=== PATIENT | female | born 1995 | race Two or more races ===

== ENCOUNTER 2024-04-07 21:30 | Observation (INO) | payer MEDICAID, SELFPAY ==
[2024-04-07 21:43] VITALS: TEMP 36.8
[2024-04-07 21:44] VITALS: BP 110/64; PULSE 75; RESP 16; RESP 99; TEMP 36.8; O2SAT 99
[2024-04-07 22:04] VITALS: BMI 31.1
[2024-04-07 22:08] VITALS: TEMP 36.8
[2024-04-07 22:10] LABS: Collection Type, Urine Clean Catch
[2024-04-07 22:12] LABS: ROM Swab Mixed By: ANGUM; Swb Mxed in Solvent 1 min? Yes
[2024-04-07 22:13] LABS: ROM Kit Lot # 57809118
[2024-04-07 22:14] LABS: Rupture of Fetal Membranes Negative (Negative)
[2024-04-07 22:42] LABS: Bacteria,Urine Rare; Bilirubin,Urine Negative (Negative); Blood,Urine Negative (Negative); Clarity,Urine Turbid (Clear/Hazy); Color,Urine Yellow (Lt Yel-Yel); Glucose, Urine Negative (Negative); Ketones,Urine Negative (Negative); Leukocyte Esterase,Urine Negative (Negative); Nitrite,Urine Negative (Negative); Protein,Urine Negative (Neg - Trace); RBC,Urine 5 /hpf (0-3); Specific Gravity,Urine 1.021 (1.001-1.035); Squamous Epithelial Cell,Urine 2 /hpf (0-5); WBC,Urine 7 /hpf (0-5)
== END 2024-04-07 23:15 | disposition home or self-care (01) ==
PROVIDERS: Admitting Provider Specialist; PCP Family Medicine; Visit Provider Specialist
DX: Z34.83 Encounter for supervision of other normal pregnancy, third trimester (principal); Z3A.28 28 weeks gestation of pregnancy
CPT/HCPCS: 59025; 59899; 81001; 84112

== ENCOUNTER 2024-06-29 12:40 | Observation (INO) | payer MEDICAID, SELFPAY ==
[2024-06-29 12:51] VITALS: BP 0/0
[2024-06-29 12:52] VITALS: BP 120/80; PULSE 75
[2024-06-29 12:55] VITALS: BP 135/79; PULSE 81; RESP 16; RESP 97; TEMP 37; O2SAT 97; BMI 33.0
[2024-06-29 13:02] VITALS: BP 116/74; PULSE 69
[2024-06-29 13:12] VITALS: BP 114/73; PULSE 72
[2024-06-29 13:22] VITALS: BP 112/65; PULSE 65
--- NOTE | 2024-06-29 13:49 | PC.NURSE ---
1325- EFM x 2 off. TORB to mo home per dr. mireles. d/c instructions given along with kick counts and labor precautions. instructed to keep all scheduled appts. pt stable to private vehicle
== END 2024-06-29 13:35 | disposition home or self-care (01) ==
PROVIDERS: Admitting Provider Obstetrics & Gynecology; Visit Provider Obstetrics & Gynecology
DX: Z34.03 Encounter for supervision of normal first pregnancy, third trimester (principal); Z3A.39 39 weeks gestation of pregnancy
CPT/HCPCS: 59025; 59899

== ENCOUNTER 2024-07-02 03:37 | Inpatient (IN) | payer MEDICAID, SELFPAY ==
[2024-07-02] VITALS (78 sets, daily range): BP systolic 111–137; BP diastolic 52–96; PULSE 56–113; RESP 16–97; TEMP 36.4–36.8; O2SAT 92–100; BMI 33.8
[2024-07-02] MEDS: RINGERS LACTATED 1000 ML 1,000 ML 125 ML IV ×3 (04:24→07:39)
[2024-07-02] MEDS: fentaNYL CIT INJ 50 mCg/ML AMP 2ML 100 MCG IV (04:34)
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
[2024-07-02 05:13] LABS: Basophils # (Auto) 0.1 Thou/mm3 (0.0-0.2); Basophils % (Auto) 0 % (0-2.5); Eosinophils % (Auto) 0 % (0-10); Hematocrit 36.1 % (36.0-46.0); Hemoglobin 12.5 g/dL (12.0-16.0); Immature Granulocytes % (Auto) 1 % (0-0); Immature Granulocytes Auto 0.12 Thou/mm3 (0.00-0.00); Lymphocytes % (Auto) 16 % (10-50); Mean Corpuscular HGB Conc 34.6 g/dl (31.0-37.0); Mean Corpuscular Volume 90 fL (80-100); Monocytes # (Auto) 0.9 Thou/mm3 (0.0-0.8); Monocytes % (Auto) 7 % (0-12); Neutrophils # (Auto) 9.2 Thou/mm3 (1.8-7.7); Neutrophils % (Auto) 75 % (37-80); Nucleated Red Blood Cell % 0 /100 WBC (0); Platelet Count 200 Thou/mm3 (140-440); RDW Standard Deviation 43.1 fL (36.4-46.3); Red Blood Count 4.03 Miln/mm3 (4.00-5.20); White Blood Count 12.4 Thou/mm3 (3.6-11.0)
[2024-07-02 05:43] LABS: Syphilis Nonreactive (Nonreactive)
[2024-07-02] MEDS: OXYTOCIN in NS 20 units 20 UNIT/1,000 ML BAG 125 UNIT IV (08:15)
--- NOTE | 2024-07-02 08:31 | OBDSUM_ITS ---
Data ([place]) Data Hx Section: No Maternal Blood Type: A Pos Rubella Titre: Positive RPR: Non-reactive Labs: Negative: RPR, Hepatitis B, HIV, Chlamydia, Gonorrhea and Group Beta Strep : 2 Term: 1 : 0 Livin Abortions: Spontaneous & Theraputic: 0 Delivery Data ([facility]) Labor Data Initiation of labor: Spontaneous Induction/Augmentation Agent: None ROM date: 07/02/24 ROM time: 08:07 Amniotic membrane rupture type: Spontaneous Amniotic fluid description: Clear Delivery Data EDC: 07/01/24 EDC calculated by:: LMP/early US confirmation Date of arrival to unit: 07/01/24 Time of arrival to unit: 03:40 Onset of labor date: 07/01/24 Onset of labor time: 23:00 Complete dilation date: 07/02/24 Complete dilation time: 08:07 [place] delivery date: 07/02/24 delivery time: 08:09 Gestational age (weeks): 40 Gestational age (days): 1 Placenta delivery date: 07/02/24 Placenta delivery time: 08:15 Stage 1 total time: Labor - Stage 1 Duration 9 hours and 7 minutes Length stage 2 (minutes): 3 Length stage 3 (minutes): 5 Delivered by: Miryam [facility] ([facility]) Delivery nurse: clover cuevas [facility] nurse: clayton cuevas Purchase Analyst at delivery: No Support person(s) at delivery: fob Other staff at delivery: isabel cuevas charge, chris cuevas Delivery Method Delivery: Vaginal Presentation: Vertex Position: OA Anesthesia Type Primary Anesthesia: Epidural Secondary Anesthesia: None Delivery Room Medications Other Intrapartum Medications: No Post Delivery Medications N/A: No Placenta Placenta Delivery: Spontaneous Placenta Cultures Obtained: No Placenta Sent for Examination: No Cord Sample: Cord Blood Obtained Episiotomy Episiotomy: None EBL Estimated blood loss (ml): 50 Umbilical Cord Umbilical Vessels: 3 Nuchal Cord: x1 Loosely Body Cord: None Additional Procedures The patient is a 28-year-old -0-0-1 at 40 1/7 weeks with all care uncomplicated with Dr Shook and on the chart. She presented to triage about 340 in the morning after rupturing her bag around 2200 the night before, on 07/02/23. The patient was admitted in early labor. She had an epidural placed approximately 6:30 in the morning and was 5 cm. She went on to rapidly progress to complete by 8:07 in the morning and ruptured her bag at that time. The patient then pushed through 1-2 contractions delivering at 8:09 in the morning. Findings: liveborn female in the YOHAN presentation with a loose nuchal cord x 1 ,no meconium. Apgars were 8 and 9 weight is pending at the time of dictation but approximately 6 pounds. The placenta was complete, spontaneous, and grossly normal. The patient delivered over an intact perineum. Complications were none. Condition both mom and infant were in stable condition in the delivery room. Complications Complications: none [place] Data ([facility]) Data order: 1 's gender: Female Identification band number: [id number] weight (gms): 2891.651 g 1 minute: 8 5 minutes: 9
[2024-07-02 16:40] LABS: Basophils % (Auto) 0 % (0-2.5); Eosinophils % (Auto) 0 % (0-10); Hematocrit 31.2 % (36.0-46.0); Immature Granulocytes % (Auto) 1 % (0-0); Lymphocytes # (Auto) 1.8 Thou/mm3 (1.0-4.8); Lymphocytes % (Auto) 12 % (10-50); Mean Corpuscular HGB Conc 35.3 g/dl (31.0-37.0); Mean Corpuscular Hemoglobin 30.6 pg (25.0-35.0); Mean Corpuscular Volume 87 fL (80-100); Monocytes # (Auto) 1.1 Thou/mm3 (0.0-0.8); Monocytes % (Auto) 7 % (0-12); Neutrophils % (Auto) 80 % (37-80); Nucleated Red Blood Cell % 0 /100 WBC (0); Platelet Count 173 Thou/mm3 (140-440); RDW Standard Deviation 41.1 fL (36.4-46.3)
[2024-07-02] MEDS: IBUPROFEN TAB 400 MG TABLET 800 MG PO (23:17)
[2024-07-03 03:55] VITALS: BP 115/81; PULSE 58; RESP 16; TEMP 36.4; O2SAT 96
[2024-07-03 08:00] VITALS: BP 113/75; PULSE 88; RESP 16; TEMP 36.6; O2SAT 96
--- NOTE | 2024-07-03 09:13 | ESPR_ITS ---
Subjective Subjective Interval history: Patient is a 28-year-old -0-0-1 admitted 07/02/2024. All care uncomplicated with Dr Shook. She went on to deliver around 8:00 in the morning on 07/02/2024 by myself. She had an epidural. She delivered over an intact perineum. Patient had an uncomplicated course and wants to go home day #2. Today she is resting comfortably in bed dressed in her own pajamas. She request stool softeners to go home. Ibuprofen is taking care of her cramping pain. Her bleeding is minimal. Exam Vital Signs Temp Pulse Resp BP Pulse Ox O2 Del Method 97.6 F 58 L 16 115/81 96 Room Air 07/03/24 03:55 07/03/24 03:55 07/03/24 03:55 07/03/24 03:55 07/03/24 03:55 07/03/24 03:55 Narrative Exam Patient is alert and orient x 3 in no apparent distress. Fundus is firm around her umbilicus extremities show no significant edema or erythema Objective Labs 07/02/24 15:58 Labs: Laboratory Results - last 24 hr 07/02/24 15:58 WBC 15.0 H RBC 3.60 L Hgb 11.0 L Hct 31.2 L MCV 87 MCH 30.6 MCHC 35.3 RDW Std Deviation 41.1 Plt Count 173 Neut % (Auto) 80 Lymph % (Auto) 12 [place] % (Auto) 7 Eos % (Auto) 0 Baso % (Auto) 0 Neut # (Auto) 12.0 H Lymph # (Auto) 1.8 [place] # (Auto) 1.1 H Eos # (Auto) 0.0 Baso # (Auto) 0.0 Immature Gran # (Auto) 0.10 H Absolute Nucleated RBC 0.00 Immature Gran % 1 H Nucleated RBC % 0 Assessment & Plan Problem List (1) Term delivered: Status: Acute Assessment and plan: Patient did well. She did not push long. She had an epidural. She delivered over an intact perineum she is stable to go home day #1. All labs and vital signs are stable. The patient is breast and bottlefeeding information about breast-feeding resources was given. She will be sent home on ibuprofen Tylenol and Colace. Plan Comment Plan Comment: Discharge home today Time Spent With Patient Time: Total time spent is greater than 50% in coordination of care (as documented) at patient's floor/unit and/or counseling patient: Time with patient: less than 15 minutes
--- NOTE | 2024-07-03 09:17 | PD.LDDS ---
DS: Providers Provider Date of admission: 07/02/24 04:00 Primary care physician: Physician No Primary/Family Admitting Provider: Luiz Shook MD Attending Provider on Admission: Luiz Shook MD Consults: 07/02/24 09:26 Referral Routine Comment: Attending Provider on DC: Miryam [facility] MD ([facility]) Discharging Provider: Miryam [facility] MD ([facility]) Anticipated date of discharge: 07/03/24 DS: Diagnosis Discharge Diagnosis (1) Term delivered: Status: Acute Assessment & Plan: Discharge home post day #1. Discharge medications include Tylenol Motrin and Colace. All discharge instructions reviewed with patient and father the baby at bedside. Problem List Completed Was Problem List Reviewed/Reconciled?: Yes Summary/Hosp Course Brief History: 28 y/o IUP 40w1d presents to [facility] for labor pains. Denies leaking or bleeding. Reports normal movement. Referred to [facility] on 05/23 for concerns about SGA but [facility] US showed overall growth at the 18th% and AC at the 35th% with no anatomic abnormalities. No other issues in her . 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 FOB is a carrier for Methylmalonic Aciduria and Homocystiuria Type Cb1c however the patient is not a carrier for these diseases. Patient was admitted in labor by Dr Shook. She was signed out to wi 07/02/2024 at 7 in the morning. The patient went on to rapidly deliver by 8:00 in the morning on 07/02/2024. Please see delivery notes for further details. She did have an epidural and delivered over an intact perineum. Her course was uncomplicated. She was discharged home day #1 in stable condition. Peripartum Data Delivery Method: Normal Vaginal Delivery Episiotomy Description: None Laceration Description: see Delivery Summary complications: none Status at Discharge Cognitive/behavioral status at discharge: Patient is alert and oriented x 3 in no apparent distress Functional status at discharge: independent ambulation Overall status at discharge: patient is progressing back to baseline Time Spent with Patient Time attestation: Total time spent providing and/or coordinating discharge services: Time spent: Less than 30 minutes Specific discharge activities: Pelvic rest x 6 weeks no intercourse, tampons, douching, swimming pools, or bathtubs x 6 weeks Exam Vital Signs Temp Pulse Resp BP Pulse Ox O2 Del Method 97.6 F 58 L 16 115/81 96 Room Air 07/03/24 03:55 07/03/24 03:55 07/03/24 03:55 07/03/24 03:55 07/03/24 03:55 07/03/24 03:55 Narrative Exam Fundus firm below her umbilicus, nontender extremities show no significant edema or erythema. Discharge Plan Plan Patient Disposition: HOME (Self Care) Disposition Comment: Stable Patient condition on transfer: Stable Prescriptions/Referrals Prescriptions/Med Rec: New ibuprofen 400 mg Tablet 800 mg PO X1 PRN (Reason: uterine cramping) Qty: 60 0RF docusate sodium [Colace] 100 mg capsule 100 mg PO BID Qty: 60 0RF Continued Vitamin 27 mg iron- 800 mcg tablet 1 tab PO QDAY Referrals: No Primary/Family,Physician [Primary Care Provider] - Patient/Caregiver Discharge Instructions Discharge Activity: activity as tolerated Other Discharge Activity Instructions:: Pelvic rest x 6 weeks. No intercourse tampons douching or bathtubs x 6 weeks. Other Discharge Diet Instructions: General Diet drink lots of water Education Materials: After a Vaginal , After Delivery Concerns, Breast Care After , : Caring for Yourself Print Language: French Activity Restrictions/Additional Instructions: For heavy vaginal bleeding, fevers 101.0 ?F or higher, or severe depression. Follow-up with Dr Shook in 6 weeks. Stand Alone Forms: Claudia Award Info., Patient Portal Info Letter Discharge Order Discharge Orders: Discharge (Routine); Ordered 07/03/24 Ordered By: Miryam [facility] ([facility]) Planned Discharge Date 07/03/24
[2024-07-03] MEDS: MEASLES, MUMPS & RUBELLA VACC 0.5 ML VIAL SCi (11:48)
--- NOTE | 2024-07-03 14:47 | PC.NURSE ---
1447: PERLITA RN COVERING PRIMARY RN LUNCH PERIOD MANAGER COMMUNICATION REPORTED SHE TALKED WITH PATIENT AND WE MAY PROCEED WITH DISCHARGE.
--- NOTE | 2024-07-03 14:54 | PC.SS ---
SS received referral from NAZIA Lawson, patient is diagnosed with anxiety. Reources and support requested. SS met with patient and her spouse at bedside. Patient confirmed demographic information and stated her spouse Asa Barrow [phone] as her surrogate medical decisionmaker. Patient disclosed she was diagnosed with anxiety by her PCP and is not connected with mental health services. Patient declined referral for mental health services and resources. Patient stated she is prescribed medication due to her symptoms being managed at this time. Patient denied SI, HI, Ah, and Vh. Patient stated her support system consists of her spouse and family. Patient reports having clothing, diapers, and basic necessities for . Patient stated she has carseat for infant and her spouse would be transporting both home at the time of discharge. Patient denies history of substance use. Patient denies having history with CWS and denies exposure to DV. 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 will be taken to [facility] for follow up appointment. Patient has pending appointment with Dr. Shook within the next 6 weeks. SS encouraged patient to infofoster RN if additional support was needed. RN informed.
== END 2024-07-03 15:45 | disposition home or self-care (01) | DRG 560 ==
LOC: S4SX 09:22 → S4NX 11:26
PROVIDERS: Obstetrics & Gynecology; Admitting Provider Specialist; Visit Provider Specialist
DX: O48.0 Post-term pregnancy (principal); O69.81X0 Labor and delivery complicated by cord around neck, without compression, not applicable or unspecified; Z37.0 Single live birth; Z3A.40 40 weeks gestation of pregnancy
CPT/HCPCS: 36415; 59025; 85025; 86780; 86850; 86900; 86901; 90707; J2590; J2795; J3010; J7120; A9270

== ENCOUNTER 2024-12-19 12:47 | Emergency (ER) | payer OTHER, MEDICAID, SELFPAY ==
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
[2024-12-19] MEDS: DIPHTH,PERTUSS(ACELL),TET VAC 0.5 ML SYR- ADULT IMi (14:41)
[2024-12-19 15:28] LABS: Hepatitis B Core Antibody IgM Non Reactive (Non React); Hepatitis B Surface Ab Reactive (Immune) (Immune); Hepatitis B Surface Antigen Non Reactive (Non React); Hepatitis C Antibody Non Reactive (Non React)
[2024-12-19 16:28] LABS: HIV (1&2) Antibody Rapid Non-Reactive
[2024-12-23 06:44] LABS: Hepatitis B Core Ab,Total* NONREACTIVE
== END 2024-12-19 16:01 | disposition home or self-care (01) ==
PROVIDERS: Nurse Practitioner Family; Emergency Provider Emergency Medicine; PCP Family Medicine
DX: Z77.21 Contact with and (suspected) exposure to potentially hazardous body fluids (principal); W46.0XXA Contact with hypodermic needle, initial encounter; Y99.0 Civilian activity done for income or pay; Z57.8 Occupational exposure to other risk factors
CPT/HCPCS: 36415; 86703; 86704; 86705; 86706; 86803; 87340; 90471; 90715; 99283